=== PATIENT | female | born 1950 | race Hispanic/Latino ===

== ENCOUNTER → 2021-07-21 | Outpatient (CLI) | payer MEDICARE | LOC: RAD 11:54 | PROVIDERS: ATTEND Family Medicine | DX: M25.552 Pain in left hip (principal) ==

== ENCOUNTER 2021-09-28 09:58 | Outpatient (RCR) | payer MEDICARE | END 2021-10-02 | LOC: PT 09:58 | PROVIDERS: ATTEND Specialist | DX: M70.72 Other bursitis of hip, left hip (principal) ==

== ENCOUNTER → 2021-11-02 | Outpatient (RCR) | payer MEDICARE | LOC: PT 10-03 09:57 | PROVIDERS: ATTEND Specialist | DX: M70.72 Other bursitis of hip, left hip (principal) ==

== ENCOUNTER 2021-11-23 10:59 | Outpatient (RCR) | payer MEDICARE | END 2021-12-02 | LOC: PT 10:59 | PROVIDERS: ATTEND Specialist | DX: M70.72 Other bursitis of hip, left hip (principal); M62.81 Muscle weakness (generalized); R26.2 Difficulty in walking, not elsewhere classified ==

== ENCOUNTER → 2024-06-16 | Outpatient (REF) | payer MEDICARE | LOC: MRI 12:54 | PROVIDERS: ATTEND Family Medicine | DX: M75.102 Unspecified rotator cuff tear or rupture of left shoulder, not specified as traumatic (principal) ==